=== PATIENT | female | born 2000 | race Caucasian/White ===

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

== ENCOUNTER 2018-01-23 14:09 | Emergency (ER) | payer OTHER ==
[2018-01-23] MEDS ORDERED: NS 1,000 ML IV ONE (14:34)
[2018-01-23] MEDS ORDERED: METOCLOPRAMIDE 10 MG/2 ML VIAL IVP ONE (14:34)
[2018-01-23] MEDS ORDERED: FAMOTIDINE 20 MG/NACL 50 ML IV ONE (14:35)
[2018-01-23] MEDS ORDERED: PROMETHAZINE HCL 25 MG/ML INJ IVP ONE (14:35)
--- NOTE | 2018-01-23 14:35 | EDPHY ---
General Time Seen by Provider: 01/23/18 14:27 Narrative: CHIEF COMPLAINT: Nausea vomiting comedonal pain HISTORY OF PRESENT ILLNESS: Patient presents with complaints of abdominal pain. This started gradually 2 days ago. Generalized discomfort that is worse with any intake by mouth. Minimal improvement when NPO. Subjectively febrile. Multiple episodes of vomiting with no bloody emesis. No dark tarry stools or bright red blood in the stools. She has no trauma or injury. She does have previous nausea vomiting that has not been quite this severe. No other associated complaints or modifying factors. REVIEW OF SYSTEMS: Ten systems reviewed and are negative unless otherwise noted in the HPI SPECIALISTS: None PAST MEDICAL HISTORY: Migraine headaches PAST SURGICAL HISTORY: No recent surgeries SOCIAL HISTORY: Nonsmoker. [employer] student. FAMILY HISTORY: Noncontributory EXAMINATION General Appearance: Alert, no distress Head: normocephalic, atraumatic Eyes: Pupils equal and round, no conjunctival pallor or injection ENT, Mouth: Mucous membranes moist. Uvula midline. Airway widely patent Neck: Normal inspection, supple, non-tender Respiratory: Lungs are clear to auscultation Cardiovascular: Regular rate and rhythm Gastrointestinal: Abdomen is soft and nondistended. There is mild tenderness in all 4 quadrants. No rebound. No guarding. No distention. No tympany rigidity. Bowel sounds are appreciated in all 4 quadrants. Back: non-tender, no bony abnormalities Neurological: A&O, nonfocal, normal gait Skin: Warm and dry, no rash. No petechiae or purpura Extremities: Nontender, no pedal edema Psychiatric: Mood and affect normal DIFFERENTIAL DIAGNOSES: Including but not limited to gastritis, pancreatitis, cholecystitis, cholelithiasis, enteritis, dehydration, food-borne illness MDM: 2:30 p.m. Acute nausea vomiting and centralized abdominal pain over the past 2 days. Her abdominal exam is benign. Vital signs are within normal limits. She is in no acute distress. I have ordered medications laboratory studies. 3:40 p.m. Patient re-evaluated. She is feeling significantly better after the medications. Laboratory studies reveal minimal abnormalities the chemistry and CBC that is consistent with her vomiting. She is in no acute distress. She is resting comfortably 4:05 p.m. Patient re-evaluated. She is feeling completely resolved at this time. She has no abdominal pain. No nausea. She is drinking Gatorade and eating crackers. She is asking to be discharged home. We discussed clear liquid diet advancing slowly as tolerated. She will be provided 2 forms of antinausea medication, and I have instructed Pepcid [id number] for next 7-10 days. She is going to follow up with her primary care physician later week when she home we discussed ED precautions, and I would like her to return here if she does not have complete resolution 24 hours from now. She is comfortable this plan and discharged home stable condition SUPERVISION: This patient was independently evaluated without direct involvement of or examination by the attending physician. - History Smoking Status: Never smoked - Objective Vital Signs: Initial Vital Signs Temperature (C) 97.9 F 01/23/18 14:13 Heart Rate 94 01/23/18 14:13 Respiratory Rate 16 01/23/18 14:13 Blood Pressure 134/93 H 01/23/18 14:13 O2 Sat (%) 99 01/23/18 14:13 O2 Delivery Mode Room Air Allergies/Adverse Reactions: No Known Allergies Allergy (Verified 01/23/18 14:12) Home Medications: Medication Instructions Recorded Dexmethylphenidate HCl [Focalin Xr] 25 mg PO 11/12/17 Escitalopram Oxalate 01/23/18 Promethazine HCl [Phenergan 25mg 25 mg PO Q8 PRN #20 tab 01/23/18 (*)] Promethazine HCl [Phenergan] 12.5 mg RC TID PRN #12 supp.rect 01/23/18 Spironolactone 01/23/18 Laboratory Results: Laboratory Results 01/23/18 14:30 01/23/18 14:30 01/23/18 01/23/18 01/23/18 14:30 14:30 14:30 WBC 9.57 10^3/uL H 10^3/uL (3.80-9.50) RBC 4.96 10^6/uL 10^6/uL (4.18-5.33) Hgb 14.2 g/dL g/dL (12.6-16.3) Hct 42.8 % % (38.0-47.0) MCV 86.3 fL fL (81.5-99.8) MCH 28.6 pg pg (27.9-34.1) MCHC 33.2 g/dL g/dL (32.4-36.7) RDW 12.9 % % (11.5-15.2) Plt Count 217 10^3/uL 10^3/uL (150-400) MPV 10.5 fL fL (8.7-11.7) Neut % (Auto) 87.2 % H % (39.3-74.2) Lymph % (Auto) 8.2 % L % (15.0-45.0) [place] % (Auto) 3.8 % L % (4.5-13.0) Eos % (Auto) 0.1 % L % (0.6-7.6) Baso % (Auto) 0.4 % % (0.3-1.7) Nucleat RBC Rel Count 0.0 % % (0.0-0.2) Absolute Neuts (auto) 8.35 10^3/uL H 10^3/uL (1.70-6.50) Absolute Lymphs (auto) 0.78 10^3/uL L 10^3/uL (1.00-3.00) Absolute Monos (auto) 0.36 10^3/uL 10^3/uL (0.30-0.80) Absolute Eos (auto) 0.01 10^3/uL L 10^3/uL (0.03-0.40) Absolute Basos (auto) 0.04 10^3/uL 10^3/uL (0.02-0.10) Absolute Nucleated RBC 0.00 10^3/uL 10^3/uL (0-0.01) Immature Gran % 0.3 % % (0.0-1.1) Immature Gran # 0.03 10^3/uL 10^3/uL (0.00-0.10) Sodium 142 mEq/L mEq/L (135-145) Potassium 4.9 mEq/L mEq/L (3.5-5.2) Chloride 104 mEq/L mEq/L (97-110) Carbon Dioxide 18 mEq/l L mEq/l (22-31) Anion Gap 20 mEq/L H mEq/L (8-16) BUN 17 mg/dL mg/dL (7-23) Creatinine 0.7 mg/dL mg/dL (0.6-1.0) Estimated GFR > 60 Glucose 88 mg/dL mg/dL (70-100) Calcium 10.0 mg/dL mg/dL (8.5-10.4) Total Bilirubin 1.5 mg/dL H mg/dL (0.1-1.4) Conjugated Bilirubin 0.5 mg/dL mg/dL (0.0-0.5) Unconjugated Bilirubin 1.0 mg/dL mg/dL (0.0-1.1) AST 27 IU/L IU/L (14-46) ALT 34 IU/L IU/L (9-52) Alkaline Phosphatase 73 IU/L IU/L (38-126) Total Protein 8.7 g/dL H g/dL (6.3-8.2) Albumin 5.1 g/dL H g/dL (3.5-5.0) Lipase 65 IU/L IU/L (23-300) Beta HCG, Qual NEGATIVE Medications Given: Discontinued Medications Diphenhydramine HCl (Benadryl Injection) 25 mg IVP EDNOW ONE Stop: 01/23/18 14:35 Last Admin: 01/23/18 14:47 Dose: 25 mg Sodium Chloride (Ns) 1,000 mls @ 0 mls/hr IV ONCE ONE; Wide Open PRN Reason: Protocol Stop: 01/23/18 14:35 Last Admin: 01/23/18 14:46 Dose: 1,000 mls Famotidine/Sodium Chloride (Pepcid 20 Mg (Premix)) 50 mls @ 200 mls/hr IV EDNOW ONE Stop: 01/23/18 14:49 Last Admin: 01/23/18 14:47 Dose: 50 mls Metoclopramide HCl (Reglan Injection) 10 mg IVP EDNOW ONE Stop: 01/23/18 14:35 Last Admin: 01/23/18 14:47 Dose: 10 mg Promethazine HCl (Phenergan) 12.5 mg IVP ONCE ONE Stop: 01/23/18 14:36 Last Admin: 01/23/18 14:47 Dose: 12.5 mg Departure - Departure Disposition: Home, Routine, Self-Care Clinical Impression: Gastritis, acute Qualifiers: Gastritis type: unspecified gastritis Gastritis bleeding: without bleeding Qualified Code(s): K29.00 - Acute gastritis without bleeding Nausea & vomiting Qualifiers: Vomiting type: unspecified Vomiting Intractability: non-intractable Qualified Code(s): R11.2 - Nausea with vomiting, unspecified Condition: Good Instructions: Gastritis (ED), Acute Nausea and Vomiting (ED) Additional Instructions: 1. Nausea medications as prescribed as needed 2. Pepcid 20 mg [id number], twice daily for the next 7-10 days 3. Clear liquid diet, advance slowly as tolerated starting tomorrow 4. Return to the emergency department in 24 hr if her symptoms are not completely resolved Referrals: NONE *PRIMARY CARE P,. [Primary Care Provider] - As per Instructions Stand Alone Forms: School Excuse Prescriptions: Promethazine HCl [Phenergan] 12.5 mg RC TID PRN #12 supp.rect PRN Reason: Nausea/Vomiting, Can'T Take Po Promethazine HCl [Phenergan 25mg (*)] 25 mg PO Q8 PRN #20 tab PRN Reason: Nausea/Vomiting, Use 1st
[2018-01-23 14:44] LABS: PLATELET COUNT 217 10^3/uL (150-400)
[2018-01-23 16:27] VITALS: BP 109/67
== END 2018-01-23 16:26 | disposition home or self-care (01) ==
DX: K29.00 Acute gastritis without bleeding (principal); E86.9 Volume depletion, unspecified
CPT/HCPCS: 96365; J1200; J2550; J2765

== ENCOUNTER 2019-02-12 22:23 | Emergency (ER) | payer OTHER ==
[2019-02-12] MEDS ORDERED: LET GEL TOPICAL 1 EA SYR TP ONE (22:45)
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
[2019-02-12] MEDS ORDERED: SKIN ADHESIVE (DERMABOND) 1 EACH TP ONE (23:36)
--- NOTE | 2019-02-13 00:34 | ASMTLCPROG ---
Notes Note: Notes: PT reports she selfharmed out of frustration and immediatly regretted. PT denies, si, hi, and does not appear gravely disabled. She has a therapist, provider and flight tomorrow home to [place]. Pt's friend is staying with her until her flight. [facility] provided referals for crisis center, the [facility] coreen, and instructed the PT in alternative pain, accupoint technique, and Mindfullness Based Stress Reduction breathing technique. PT was receptive clear, and insightful. Both PT and friend believe pt is safe, and [facility] is also not concerned about pt's safety. Both friend and PT agreed safety plan and that pt would follow up with her existing out pt therapy resources. Date Signed: 02/13/2019 12:33 AM Electronically Signed By:Domenico Saenz
[2019-02-13 00:54] VITALS: BP 126/68
== END 2019-02-13 00:54 | disposition home or self-care (01) ==
PROC: 0HQEXZZ Repair Left Lower Arm Skin, External Approach (ICD-10-PCS; principal; 2019-02-12)
DX: S51.812A Laceration without foreign body of left forearm, initial encounter (principal); X78.8XXA Intentional self-harm by other sharp object, initial encounter